=== PATIENT | male | born 1950 | race Caucasian/White ===

== ENCOUNTER 2020-11-17 19:52 | Emergency (ER) | payer MEDICARE, OTHER ==
--- NOTE | 2020-11-17 20:58 | EDM.PDOC ---
ED HPI GENERAL MEDICAL PROBLEM - General Chief Complaint: Genitourinary Problem Stated Complaint: NEEDS TO BE CATHED Time Seen by Provider: 11/17/20 20:05 Source of Information: Reports: Patient, Family (), RN Notes Reviewed History Limitations: Reports: No Limitations - History of Present Illness INITIAL COMMENTS - FREE TEXT/NARRATIVE: Patient is a 70-year-old male who presents to the ER for his acute urinary retention. Patient has been dealing with this for some time, and he has been evaluated urology in [place]. Patient did have his Landaverde catheter pulled earlier this morning, and states that he has not had any sort of relief or release of urine since about 9 AM this morning. So he was going on about 10 or 11 hours of not urinating. Patient presents to the ER to have a Landaverde catheter placed. States that he does have a follow-up urology appointment tomorrow. No fevers no chills no cough no shortness of breath, no nausea/vomiting/diarrhea. - Related Data Allergies Allergy/AdvReac Type Severity Reaction Status Date / Time No Known Allergies Allergy Verified 11/17/20 20:09 Home Meds: Home Meds Tamsulosin [Tamsulosin 24 Hr] 0.4 mg PO DAILY 11/17/20 [History] Past Medical History Genitourinary History: Reports: Retention, Urinary Neurological History: Reports: Brain Injury, CVA - Past Surgical History Neurological Surgical History: Reports: Other (See Below) Other Neurological Surgeries/Procedures: Subdural Hematoma with Delvis Holes after horseback riding injury in . Social & Family History - Tobacco Use Tobacco Use Status *Q: Never Tobacco User - Caffeine Use Caffeine Use: Reports: None - Recreational Drug Use Recreational Drug Use: No ED ROS GENERAL - Review of Systems Review Of Systems: Comprehensive ROS is negative, except as noted in HPI. ED EXAM, RENAL/ - Physical Exam Exam: See Below Exam Limited By: No Limitations General Appearance: Alert, WD/WN, No Apparent Distress Respiratory/Chest: No Respiratory Distress, Lungs Clear, Normal Breath Sounds, No Accessory Muscle Use, Chest Non-Tender Cardiovascular: Normal Peripheral Pulses, Regular Rate, Rhythm, No Edema GI/Abdominal: Normal Bowel Sounds, Soft, Non-Tender, No Distention, No Mass Neurological: Alert, Oriented, Normal Cognition, No Motor/Sensory Deficits Psychiatric: Normal Affect, Normal Mood Skin Exam: Warm, Dry, Intact, Normal Color, No Rash Course - Vital Signs Last Recorded V/S: Last Vital Signs Temp 98.9 F 11/17/20 20:06 Pulse 85 11/17/20 20:06 Resp 16 11/17/20 20:06 BP 160/79 H 11/17/20 20:06 Pulse Ox 100 11/17/20 20:06 - Orders/Labs/Meds Orders: Active Orders 24 hr Category Date Time Status Bladder Scan [RC] ASDIRECTED Care 11/17/20 20:08 Ordered Insert Landaverde Catheter [Insert Urinary Catheter] [OM.PC] Care 11/17/20 20:51 Ordered Stat Urinary Catheter Assessment [RC] ASDIRECTED Care 11/17/20 20:51 Ordered - Re-Assessments/Exams Free Text/Narrative Re-Assessment/Exam: 11/17/20 20:58 Patient presents to the ER for evaluation of his urinary retention. A Landaverde catheter was placed at the time of triage, and the nursing staff did drain about 600 or 700 mils of urine at this time. We will keep the Landaverde in place until he can be seen by urology tomorrow. Departure - Departure Time of Disposition: 20:59 Disposition: Home, Self-Care 01 Condition: Good Clinical Impression: Acute urinary retention, Encounter for Landaverde catheter replacement - Discharge Information *PRESCRIPTION DRUG MONITORING PROGRAM REVIEWED*: No *COPY OF PRESCRIPTION DRUG MONITORING REPORT IN PATIENT JOHN: No Instructions: Acute Urinary Retention, Male, [id number] Referrals: George Stallworth MD [Primary Care Provider] - Additional Instructions: Your evaluated in the ER today for your acute urinary retention. A Landaverde catheter was placed at today's visit. You were shown how to change the bags from the large bag to a leg bag. Please try to do so in a sterile the fashion as possible to help limit the amount of bacteria present when changing the bags. Recommend that you keep your appointment with urology tomorrow, for ongoing management of your urinary retention issues. Do not hesitate to return to the ER at any time if symptoms change or worsen. Sepsis Event Note (ED) - Evaluation Sepsis Screening Result: No Definite Risk - Focused Exam Vital Signs: Vital Signs Temp Pulse Resp BP Pulse Ox 11/17/20 20:06 98.9 F 85 16 160/79 H 100 - My Orders Last 24 Hours: My Active Orders 11/17/20 20:08 Bladder Scan [RC] ASDIRECTED 11/17/20 20:51 Insert Landaverde Catheter [Insert Urinary Catheter] [OM.PC] Stat Urinary Catheter Assessment [RC] ASDIRECTED - Assessment/Plan Last 24 Hours: My Active Orders 11/17/20 20:08 Bladder Scan [RC] ASDIRECTED 11/17/20 20:51 Insert Landaverde Catheter [Insert Urinary Catheter] [OM.PC] Stat Urinary Catheter Assessment [RC] ASDIRECTED
== END 2020-11-17 21:13 | disposition home or self-care (01) ==
LOC: JD.ED 19:52
DX: R33.9 Retention of urine, unspecified (principal); Z46.6 Encounter for fitting and adjustment of urinary device
CPT/HCPCS: 51702; 99283-25

== ENCOUNTER 2020-11-24 20:18 | Emergency (ER) | payer MEDICARE, OTHER ==
--- NOTE | 2020-11-24 21:20 | EDM.PDOC ---
ED [facility] GENERAL MEDICAL PROBLEM - General Chief Complaint: Genitourinary Problem Stated Complaint: NEEDS A CATH PUT IN Time Seen by Provider: 11/24/20 20:45 Source of Information: Reports: Patient History Limitations: Reports: No Limitations - History of Present Illness INITIAL COMMENTS - FREE TEXT/NARRATIVE: Patient is a 70-year-old male presenting to the emergency room with a complaint of urinary retention. Patient states approximately 2 to 3 weeks ago, he first really dealing with this issue. He was seen in [place] and had a Landaverde catheter put in. He states he has been following up with urology. In fact, he removed the urinary catheter this morning and saw urology this afternoon. He was able to urinate a little bit and the regular hold off putting her urinary ca theter back in. However, this evening, he started to feel significant pressure and pain in his pelvic area and therefore came into the emergency room. Patient reports little urinary output since this afternoon. He has follow-up tomorrow with urology as well as follow-up in [place] for more urologic work-up. Patient otherwise denies fevers, dysuria, hematuria. A Landaverde catheter was placed shortly after triage which drained approximately 1000 cc from his bladder. Patient felt significant relief with this. Lower Bladder Pain Score (Numeric/FACES): 9 - Related Data Allergies Allergy/AdvReac Type Severity Reaction Status Date / Time No Known Allergies Allergy Verified 11/17/20 20:09 Home Meds: Home Meds Tamsulosin [Tamsulosin 24 Hr] 0.4 mg PO DAILY 11/17/20 [History] Past Medical History Genitourinary History: Reports: Retention, Urinary Neurological History: Reports: Brain Injury, CVA - Past Surgical History Neurological Surgical History: Reports: Other (See Below) Other Neurological Surgeries/Procedures: Subdural Hematoma with Delvis Holes after horseback riding injury in . Social & Family History - Caffeine Use Caffeine Use: Reports: None ED ROS GENERAL - Review of Systems Review Of Systems: Comprehensive ROS is negative, except as noted in HPI. ED EXAM, RENAL/ - Physical Exam Exam: See Below Text/Narrative:: In addition to that documented in the HPI above, the additional ROS was obtained: Constitutional: Denies fevers or chills Eyes: Denies vision changes ENMT: Denies sore throat CV: Denies chest pain Resp: Denies SOB GI: Denies vomiting or diarrhea : Denies painful urination MSK: Denies recent trauma Skin: Denies new rashes Neuro: Denies new numbness or tingling or weakness Endocrine: Denies unexpected weight loss Heme: Denies bleeding disorders Course - Vital Signs Last Recorded V/S: Last Vital Signs Temp 36.6 C 11/24/20 20:35 Pulse 77 11/24/20 20:35 Resp 16 11/24/20 20:35 BP 142/78 H 11/24/20 20:35 Pulse Ox 99 11/24/20 20:35 - Orders/Labs/Meds Orders: Active Orders 24 hr Category Date Time Status Landaverde Catheter Insertion [Insert Urinary Catheter] [OM. Care 11/24/20 21:30 Ordered PC] Q24H Urinary Catheter Assessment [RC] ASDIRECTED Care 11/24/20 21:23 Active Departure - Departure Time of Disposition: 21:20 Disposition: Home, Self-Care 01 Clinical Impression: Acute urinary retention, Encounter for Landaverde catheter replacement - Discharge Information Instructions: Acute Urinary Retention, Male, [id number] Referrals: George Stallworth MD [Primary Care Provider] - Forms: ED Department Discharge Additional Instructions: Please follow-up with your urologist tomorrow morning. Return to the emergency room for any further issues with urination. Otherwise, please keep catheter in place until seen by urology. Sepsis Event Note (ED) - Evaluation Sepsis Screening Result: No Definite Risk - Focused Exam Vital Signs: Vital Signs Temp Pulse Resp BP Pulse Ox 11/24/20 20:35 36.6 C 77 16 142/78 H 99 - My Orders Last 24 Hours: My Active Orders 11/24/20 21:23 Urinary Catheter Assessment [RC] ASDIRECTED 11/24/20 21:30 Landaverde Catheter Insertion [Insert Urinary Catheter] [OM.PC] Q24H - Assessment/Plan Last 24 Hours: My Active Orders 11/24/20 21:23 Urinary Catheter Assessment [RC] ASDIRECTED 11/24/20 21:30 Landaverde Catheter Insertion [Insert Urinary Catheter] [OM.PC] Q24H Assessment:: Patient 70-year-old male presenting to the emergency room with a complaint of urinary retention. Patient found to have approximate 1000 cc of urine in his bladder. Landaverde catheter was placed without difficulty. Patient will be discharged with outpatient follow-up tomorrow. Patient did have a creatinine checked today according to patient's which was found to be 1.11. No indication for repeating labs at this point. Will recommend close urology follow-up. Return precautions discussed as usual. Patient agrees with plan of care.
== END 2020-11-24 21:50 | disposition home or self-care (01) ==
LOC: JD.ED 20:18
DX: R33.9 Retention of urine, unspecified (principal); Z46.6 Encounter for fitting and adjustment of urinary device; Z79.899 Other long term (current) drug therapy
CPT/HCPCS: 51702; 99283-25

== ENCOUNTER 2020-12-16 13:33 | Emergency (ER) | payer MEDICARE, OTHER ==
[2020-12-16] MEDS ORDERED: Lidocaine 2% Jelly 10 ML Urojet ONE (14:10)
[2020-12-16] MEDS ORDERED: Lidocaine 2% Jelly 10 ML Urojet MUCMEM ONE (14:31)
--- NOTE | 2020-12-16 14:32 | EDM.PDOC ---
ED HPI GENERAL MEDICAL PROBLEM - General Chief Complaint: Genitourinary Problem Stated Complaint: NEEDS CATHETER Time Seen by Provider: 12/16/20 13:38 Source of Information: Reports: Patient, Family, RN Notes Reviewed History Limitations: Reports: No Limitations - History of Present Illness INITIAL COMMENTS - FREE TEXT/NARRATIVE: Patient is a 70-year-old male presenting to the emergency department for Landaverde catheter insertion. He has been dealing with urinary retention for the last month. They have attempted 3 times now to remove the catheter and see if he is able to void unsuccessfully. He had hernia repair last week which he feels may be exacerbating his urinary retention. He was scheduled to see his urologist, Dr. Bella today and they recommended that he take his catheter out early this morning in preparation for the visit which they did. Unfortunately due to the weather, they did not make it to [place] to see the urologist. He reports that initially once the catheter is moved, he had a few episodes of dribbling so he was hopeful that it would be successful, however prior to coming to ER his pain became significant due to not being able to void. He removed his catheter around 1 AM this morning. He has not rescheduled his urology appointment yet. Bladder Pain Score (Numeric/FACES): 6 - Related Data Allergies Allergy/AdvReac Type Severity Reaction Status Date / Time No Known Allergies Allergy Verified 11/17/20 20:09 Home Meds: Home Meds Tamsulosin [Tamsulosin 24 Hr] 0.4 mg PO DAILY 11/17/20 [History] Hydrocodone/Acetaminophen [HYDROcodone-Acetaminophen 5-325 MG] 1 tab PO ASDIRECTED 12/16/20 [History] Sulfamethoxazole/Trimethoprim [Bactrim Ds Tablet] 1 each PO BID 7 Days #14 tablet 12/16/20 [Rx] Past Medical History Genitourinary History: Reports: Prostate Disorder, Retention, Urinary Neurological History: Reports: Brain Injury, CVA - Infectious Disease History Infectious Disease History: Reports: None - Past Surgical History GI Surgical History: Reports: Hernia, Inguinal Other GI Surgeries/Procedures: repaired past week Neurological Surgical History: Reports: Other (See Below) Other Neurological Surgeries/Procedures: Subdural Hematoma with [place] Holes after horseback riding injury in . Social & Family History - Tobacco Use Tobacco Use Status *Q: Never Tobacco User - Caffeine Use Caffeine Use: Reports: None - Recreational Drug Use Recreational Drug Use: No ED ROS GENERAL - Review of Systems Review Of Systems: Comprehensive ROS is negative, except as noted in HPI. ED EXAM, RENAL/ - Physical Exam Exam: See Below Exam Limited By: No Limitations General Appearance: Alert, WD/WN, No Apparent Distress Respiratory/Chest: No Respiratory Distress, Lungs Clear, Normal Breath Sounds, No Accessory Muscle Use, Chest Non-Tender Cardiovascular: Normal Peripheral Pulses, Regular Rate, Rhythm, No Edema, No Gallop, No JVD, No Murmur, No Rub Neurological: Alert, Oriented, CN II-XII Intact, Normal Cognition, Normal Gait, Normal Reflexes, No Motor/Sensory Deficits Psychiatric: Normal Affect, Normal Mood Skin Exam: Warm, Dry, Intact, Normal Color, No Rash Course - Vital Signs Last Recorded V/S: Last Vital Signs Temp 98.6 F 12/16/20 13:39 Pulse 75 12/16/20 13:39 Resp 20 12/16/20 13:39 BP 156/89 H 12/16/20 13:39 Pulse Ox 100 12/16/20 13:39 - Orders/Labs/Meds Orders: Active Orders 24 hr Category Date Time Status Bladder Scan [RC] ASDIRECTED Care 12/16/20 13:50 Active Insert Urinary Catheter [OM.PC] Q24H Care 12/16/20 14:45 Ordered Urinary Catheter Assessment [RC] ASDIRECTED Care 12/16/20 14:32 Active CULTURE URINE [MREF] Stat Lab 12/16/20 14:56 Ordered UA W/MICROSCOPIC [URIN] Stat Lab 12/16/20 14:35 Results Labs: Laboratory Tests 12/16/20 Range/Units 14:35 Urine Color Yellow (Yellow) Urine Appearance Slt cloudy H (Clear) Urine pH 6.0 (5.0-8.0) Ur Specific [place] 1.025 (1.005-1.030) Urine Protein 1+ H (Negative) Urine Glucose (UA) Negative (Negative) Urine Ketones Negative (Negative) Urine Occult Blood 2+ H (Negative) Urine Nitrite Positive H (Negative) Urine Bilirubin Negative (Negative) Urine Urobilinogen 0.2 (0.2-1.0) Ur Leukocyte Esterase 1+ H (Negative) Meds: Medications Discontinued Medications Generic Name Dose Route Start Last Admin Trade Name Freq PRN Reason Stop Dose Admin Lidocaine HCl Confirm 12/16/20 14:10 12/16/20 14:34 Lidocaine 2% Jelly 10 Ml [employer]ro[employer] Administered 12/16/20 14:11 Not Given Dose 10 ml .ROUTE .STK-MED ONE Lidocaine HCl 10 ml 12/16/20 14:31 12/16/20 14:15 Lidocaine 2% Jelly 10 Ml Urojet MUCMEM 12/16/20 14:32 10 ml ONETIME ONE Administration - Re-Assessments/Exams Free Text/Narrative Re-Assessment/Exam: Patient is a 70-year-old male presenting to the emergency department for urinary retention. Landaverde catheter was inserted on arrival and returned approximately 600 mils of clear yellow urine. I sent urine for urinalysis. 12/16/20 14:57 Urinalysis is positive for nitrates and 1+ leukocyte esterase. This has been sent for culture. Patient will be started on Bactrim for treatment of urinary tract infection. Discharge instructions as documented. Departure - Departure Time of Disposition: 14:58 Disposition: Home, Self-Care 01 Condition: Good Clinical Impression: UTI, Urinary tract infectious disease, Acute urinary retention - Discharge Information *PRESCRIPTION DRUG MONITORING PROGRAM REVIEWED*: No *COPY OF PRESCRIPTION DRUG MONITORING REPORT IN PATIENT JOHN: No Prescriptions: Sulfamethoxazole/Trimethoprim [Bactrim Ds Tablet] 1 each PO BID 7 Days #14 tablet Instructions: Urinary Tract Infection, Adult, Indwelling Urinary Catheter Care, Adult Referrals: George Stallworth MD [Primary Care Provider] - Forms: ED Department Discharge Additional Instructions: Take Bactrim as prescribed. Contact Dr. Willis office to set up follow-up. Return to ER as needed. Sepsis Event Note (ED) - Focused Exam Vital Signs: Vital Signs Temp Pulse Resp BP Pulse Ox 12/16/20 13:39 98.6 F 75 20 156/89 H 100 - My Orders Last 24 Hours: My Active Orders 12/16/20 13:50 Bladder Scan [RC] ASDIRECTED 12/16/20 14:32 Urinary Catheter Assessment [RC] ASDIRECTED 12/16/20 14:35 UA W/MICROSCOPIC [URIN] Stat 12/16/20 14:45 Insert Urinary Catheter [OM.PC] Q24H 12/16/20 14:56 CULTURE URINE [MREF] Stat - Assessment/Plan Last 24 Hours: My Active Orders 12/16/20 13:50 Bladder Scan [RC] ASDIRECTED 12/16/20 14:32 Urinary Catheter Assessment [RC] ASDIRECTED 12/16/20 14:35 UA W/MICROSCOPIC [URIN] Stat 12/16/20 14:45 Insert Urinary Catheter [OM.PC] Q24H 12/16/20 14:56 CULTURE URINE [MREF] Stat
== END 2020-12-16 15:07 | disposition home or self-care (01) ==
LOC: JD.ED 13:33
DX: R33.9 Retention of urine, unspecified (principal); N39.0 Urinary tract infection, site not specified
CPT/HCPCS: 51702; 81001; 87086; 87088; 87186; 99284-25

== ENCOUNTER 2020-12-18 15:44 | Emergency (ER) | payer MEDICARE, OTHER ==
--- NOTE | 2020-12-18 16:39 | EDM.PDOC ---
ED HPI GENERAL MEDICAL PROBLEM - General Chief Complaint: Genitourinary Problem Stated Complaint: CATHETER COMPLAINT Time Seen by Provider: 12/18/20 16:20 Source of Information: Reports: Patient, Old Records, RN Notes Reviewed History Limitations: Reports: No Limitations - History of Present Illness INITIAL COMMENTS - FREE TEXT/NARRATIVE: Patient is a 70-year-old male who presents to the ER due to needing a urinary catheter. The patient states he has been having ongoing issues with his urination, he was seen in this ER 2 days ago was found to have a UTI, placed on Bactrim and sent home with a Landaverde catheter. He states that this worked well for about 24 hours but then it fell out. He was trying to avoid coming back to the ER and states that he had to urinate every 20 or 30 minutes, and just little bits at a time. States he was not getting much sleep due to the increased urination. He is working with his urologist for ongoing management. No fevers, no chills, no cough, no shortness of breath. Abdominal Pain Score (Numeric/FACES): 2 - Related Data Allergies Allergy/AdvReac Type Severity Reaction Status Date / Time No Known Allergies Allergy Verified 12/18/20 16:21 Home Meds: Home Meds Tamsulosin [Tamsulosin 24 Hr] 0.4 mg PO DAILY 11/17/20 [History] Hydrocodone/Acetaminophen [HYDROcodone-Acetaminophen 5-325 MG] 1 tab PO ASDIRECTED 12/16/20 [History] Sulfamethoxazole/Trimethoprim [Bactrim Ds Tablet] 1 each PO BID 7 Days #14 tablet 12/16/20 [Rx] Past Medical History HEENT History: Reports: Other (See Below) Other HEENT History: glasses Gastrointestinal History: Reports: Other (See Below) Other Gastrointestinal History: hernia Genitourinary History: Reports: Prostate Disorder, Retention, Urinary Neurological History: Reports: Brain Injury, CVA - Infectious Disease History Infectious Disease History: Reports: None - Past Surgical History GI Surgical History: Reports: Hernia, Inguinal Other GI Surgeries/Procedures: repaired past week Neurological Surgical History: Reports: Other (See Below) Other Neurological Surgeries/Procedures: Subdural Hematoma with Delvis Holes after horseback riding injury in . Social & Family History - Caffeine Use Caffeine Use: Reports: None - Recreational Drug Use Recreational Drug Use: No ED ROS GENERAL - Review of Systems Review Of Systems: Comprehensive ROS is negative, except as noted in HPI. ED EXAM, RENAL/ - Physical Exam Exam: See Below Exam Limited By: No Limitations General Appearance: Alert, WD/WN, No Apparent Distress Respiratory/Chest: No Respiratory Distress, Lungs Clear, Normal Breath Sounds, No Accessory Muscle Use, Chest Non-Tender Cardiovascular: Normal Peripheral Pulses, Regular Rate, Rhythm, No Edema GI/Abdominal: Normal Bowel Sounds, Soft, Non-Tender, No Distention, No Mass Extremities: Normal Inspection, Normal Capillary Refill Neurological: Alert, Oriented, Normal Cognition, No Motor/Sensory Deficits Psychiatric: Normal Affect, Normal Mood Skin Exam: Warm, Dry, Intact, Normal Color, No Rash Course - Vital Signs Last Recorded V/S: Last Vital Signs Temp 97.6 F 12/18/20 16:18 Pulse 74 12/18/20 16:18 Resp 20 12/18/20 16:18 BP 139/91 H 12/18/20 16:18 Pulse Ox 97 12/18/20 16:18 - Orders/Labs/Meds Orders: Active Orders 24 hr Category Date Time Status Bladder Scan [RC] ASDIRECTED Care 12/18/20 16:27 Active Landaverde Catheter Insertion [Insert Urinary Catheter] [OM. Care 12/18/20 16:45 Ordered PC] Q24H Urinary Catheter Assessment [RC] ASDIRECTED Care 12/18/20 16:33 Active - Re-Assessments/Exams Free Text/Narrative Re-Assessment/Exam: 12/18/20 16:38 Patient presents to the ER for needing a Landaverde catheter placed. We will do a pre and post void residual and get a Landaverde catheter placed. Patient is currently on Bactrim and culture results have not been finalized as I did call lab and they had not received any. We will have the patient continue this we will call him if you should need to switch his antibiotics. Departure - Departure Time of Disposition: 16:51 Disposition: Home, Self-Care 01 Condition: Good Clinical Impression: Encounter for Landaverde catheter replacement - Discharge Information *PRESCRIPTION DRUG MONITORING PROGRAM REVIEWED*: No *COPY OF PRESCRIPTION DRUG MONITORING REPORT IN PATIENT JOHN: No Instructions: Indwelling Urinary Catheter Care, Adult Referrals: George Stallworth MD [Primary Care Provider] - Forms: ED Department Discharge Additional Instructions: You were evaluated in the ER today due to needing a Landaverde catheter placed. This was placed without difficulty. Your urine culture results were checked on at the lab, however they do not have a finalized report, so you will need to continue the antibiotics on which you are already prescribed, Bactrim until the report has been finalized to see if you need a change in antibiotics. Follow-up with urologist on Sunday, for ongoing management. Do not hesitate to return to the ER at any time if symptoms change or worsen. Sepsis Event Note (ED) - Focused Exam Vital Signs: Vital Signs Temp Pulse Resp BP Pulse Ox 12/18/20 16:18 97.6 F 74 20 139/91 H 97 - My Orders Last 24 Hours: My Active Orders 12/18/20 16:27 Bladder Scan [RC] ASDIRECTED 12/18/20 16:33 Urinary Catheter Assessment [RC] ASDIRECTED 12/18/20 16:45 Landaverde Catheter Insertion [Insert Urinary Catheter] [OM.PC] Q24H - Assessment/Plan Last 24 Hours: My Active Orders 12/18/20 16:27 Bladder Scan [RC] ASDIRECTED 12/18/20 16:33 Urinary Catheter Assessment [RC] ASDIRECTED 12/18/20 16:45 Landaverde Catheter Insertion [Insert Urinary Catheter] [OM.PC] Q24H
== END 2020-12-18 17:50 | disposition home or self-care (01) ==
LOC: JD.ED 15:44
DX: T83.091A Other mechanical complication of indwelling urethral catheter, initial encounter (principal); Z86.73 Personal history of transient ischemic attack (TIA), and cerebral infarction without residual deficits; Z79.899 Other long term (current) drug therapy
CPT/HCPCS: 51702; 99283-25

== ENCOUNTER 2020-12-26 21:20 | Emergency (ER) | payer MEDICARE, OTHER ==
--- NOTE | 2020-12-26 23:17 | EDM.PDOC ---
ED HPI GENERAL MEDICAL PROBLEM - General Chief Complaint: Genitourinary Problem Stated Complaint: CATHETER COMPLAINT Time Seen by Provider: 12/26/20 22:50 Source of Information: Reports: Patient, Family History Limitations: Reports: No Limitations - History of Present Illness INITIAL COMMENTS - FREE TEXT/NARRATIVE: Patient is a 70-year-old male with a past medical history of BPH presenting with a chief complaint of inability to urinate through a Landaverde catheter. Patient has had a Landaverde for at least 6 weeks now. Patient has scheduled surgery for his prostate in early January. He states this evening he noticed he was unable to pass urine through his catheter. Otherwise, he is having some suprapubic discomfort denies any fevers, chills, abdominal pain, nausea, vomiting. No blood noted in the catheter. Lower Bladder Pain Score (Numeric/FACES): 6 - Related Data Allergies Allergy/AdvReac Type Severity Reaction Status Date / Time No Known Allergies Allergy Verified 12/26/20 22:31 Home Meds: Home Meds Ciprofloxacin [Ciprofloxacin HCl] 500 mg PO BID #14 tab 12/27/20 [Rx] Past Medical History HEENT History: Reports: Other (See Below) Other HEENT History: glasses Gastrointestinal History: Reports: Other (See Below) Other Gastrointestinal History: hernia Genitourinary History: Reports: Prostate Disorder, Retention, Urinary Neurological History: Reports: Brain Injury, CVA - Infectious Disease History Infectious Disease History: Reports: None - Past Surgical History GI Surgical History: Reports: Hernia, Inguinal Other GI Surgeries/Procedures: repaired past week Neurological Surgical History: Reports: Other (See Below) Other Neurological Surgeries/Procedures: Subdural Hematoma with Sterling Holes after horseback riding injury in . Social & Family History - Tobacco Use Tobacco Use Status *Q: Never Tobacco User Second Hand Smoke Exposure: No - Caffeine Use Caffeine Use: Reports: None - Recreational Drug Use Recreational Drug Use: No ED ROS GENERAL - Review of Systems Review Of Systems: Comprehensive ROS is negative, except as noted in HPI. ED EXAM, RENAL/ - Physical Exam Exam: See Below Text/Narrative:: I have reviewed the triage vital signs Const: Well nourished, well developed, appears stated age Eyes: No conjunctival injection HENT: No signs of trauma or swelling, Neck supple without meningismus CV: Regular Rate Rhythm, Warm, well-perfused extremities RESP: Unlabored respiratory effort MSK: No gross deformities appreciated Skin: Warm, dry. No rashes Neuro: Alert, military police officer II-XII grossly intact. Sensation and motor function of extremities grossly intact. Psych: Appropriate mood and affect. Course - Vital Signs Last Recorded V/S: Last Vital Signs Temp 36.7 C 12/26/20 22:25 Pulse 68 12/26/20 22:25 Resp 16 12/26/20 22:25 BP 125/79 12/26/20 22:25 Pulse Ox 97 12/26/20 22:25 - Orders/Labs/Meds Orders: Active Orders 24 hr Category Date Time Status CULTURE URINE [MREF] Stat Lab 12/27/20 00:10 Received Labs: Laboratory Tests 12/27/20 Range/Units 00:10 Urine Color Yellow (Yellow) Urine Appearance Clear (Clear) Urine pH 6.0 (5.0-8.0) Ur Specific Temple > or = 1.030 (1.005-1.030) Urine Protein Negative (Negative) Urine Glucose (UA) Negative (Negative) Urine Ketones Negative (Negative) Urine Occult Blood Trace-intact H (Negative) Urine Nitrite Negative (Negative) Urine Bilirubin Negative (Negative) Urine Urobilinogen 0.2 (0.2-1.0) Ur Leukocyte Esterase Trace H (Negative) U Hyaline Cast (Auto) 0-5 (0-5) /lpf Urine RBC 0-5 (0-5) /hpf Urine WBC 5-10 H (0-5) /hpf Ur Epithelial Cells Not seen (0-5) /hpf Uric Acid Crystals Few H (NONE) Amorphous Sediment Few H (NOT SEEN) /hpf Urine Bacteria Moderate H (FEW) /hpf Urine Mucus Rare (FEW) /hpf Departure - Departure Time of Disposition: 00:51 Disposition: Home, Self-Care 01 Clinical Impression: Retention of urine, UTI (urinary tract infection) - Discharge Information Prescriptions: Ciprofloxacin [Ciprofloxacin HCl] 500 mg PO BID #14 tab Instructions: Urinary Tract Infection, Adult, [id number], Acute Urinary Retention, Male, [id number] Referrals: George Stallworth MD [Primary Care Provider] - Forms: ED Department Discharge Sepsis Event Note (ED) - Evaluation Sepsis Screening Result: No Definite Risk - Focused Exam Vital Signs: Vital Signs Temp Pulse Resp BP Pulse Ox 12/26/20 22:25 36.7 C 68 16 125/79 97 - My Orders Last 24 Hours: My Active Orders 12/27/20 00:10 CULTURE URINE [MREF] Stat - Assessment/Plan Last 24 Hours: My Active Orders 12/27/20 00:10 CULTURE URINE [MREF] Stat Assessment:: Patient 70 old male presenting to the emergency room with acute urinary retention. Nursing staff was able to flush catheter and get appropriate urine output. Urinalysis demonstrates evidence of urinary tract infection. Patient will be initiated on ciprofloxacin oral antibiotics. Otherwise, no indication for laboratory testing at this time. Patient does have appropriate outpatient follow-up with urology. Return precautions discussed as usual. Patient agrees with plan of care.
== END 2020-12-27 01:10 | disposition home or self-care (01) ==
LOC: JD.ED 21:20
DX: N39.0 Urinary tract infection, site not specified (principal)
CPT/HCPCS: 81001; 87086; 99283

== ENCOUNTER 2021-05-16 17:17 | Emergency (ER) | payer MEDICARE, OTHER ==
[2021-05-16] MEDS ORDERED: cefTRIAXone 1 GM, Lidocaine 1% 2.1 ML IM ONE ×2 (19:23)
== END 2021-05-16 19:58 | disposition home or self-care (01) ==
LOC: JD.ED 17:17
DX: N39.0 Urinary tract infection, site not specified (principal); Z86.73 Personal history of transient ischemic attack (TIA), and cerebral infarction without residual deficits
CPT/HCPCS: 36415; 51798; 80053; 81001; 85025; 87086; 96372; 99283; J0696; 99284

== ENCOUNTER 2022-09-30 06:20 | Emergency (ER) | payer MEDICARE, OTHER ==
[2022-09-30 06:43] LABS: APPEARANCE,URINE CLOUDY (Clear); BILIRUBIN,URINE NEGATIVE (Negative); COLOR,URINE YELLOW (Yellow); GLUCOSE,URINE NEGATIVE (Negative); KETONES,URINE 1+ (Negative); LEUKOCYTE ESTERASE,URINE 1+ (Negative); NITRITE,URINE NEGATIVE (Negative); OCCULT BLOOD,URINE 2+ (Negative); PH,URINE 5.5 (5.0-8.0); PROTEIN,URINE 2+ (Negative); UROBILINOGEN,URINE 0.2 (0.2-1.0)
[2022-09-30 07:02] LABS: WBC CLUMPS,URINE MODERATE /hpf (NOT SEEN); WBC,URINE 50-75 /hpf (0-5)
[2022-09-30 07:03] LABS: BACTERIA,URINE MODERATE /hpf (FEW); EPITHELIAL CELLS,URINE NOT SEEN /hpf (0-5); HYALINE CASTS,URINE 0-5 /lpf (0-5); MUCUS,URINE MODERATE /hpf (FEW)
[2022-09-30] MEDS ORDERED: Ondansetron 4 MG Tab.DIS PO PRN (07:27)
== END 2022-09-30 08:03 | disposition home or self-care (01) ==
LOC: JD.ED 06:20
DX: N39.0 Urinary tract infection, site not specified (principal); Z86.73 Personal history of transient ischemic attack (TIA), and cerebral infarction without residual deficits; Z79.899 Other long term (current) drug therapy
CPT/HCPCS: 51798; 81001; 87086; 87088; 87186; 99284; A9270; 99282

== ENCOUNTER 2022-12-28 04:23 | Emergency (ER) | payer MEDICARE, OTHER ==
[2022-12-28 04:52] LABS: APPEARANCE,URINE CLEAR (Clear); BILIRUBIN,URINE NEGATIVE (Negative); COLOR,URINE YELLOW (Yellow); GLUCOSE,URINE NEGATIVE (Negative); KETONES,URINE NEGATIVE (Negative); LEUKOCYTE ESTERASE,URINE NEGATIVE (Negative); NITRITE,URINE NEGATIVE (Negative); OCCULT BLOOD,URINE NEGATIVE (Negative); PROTEIN,URINE NEGATIVE (Negative); UROBILINOGEN,URINE 0.2 (0.2-1.0)
[2022-12-28] MEDS ORDERED: Sodium Chloride 0.9% 10 ML Syringe FLUSH PRN (05:44)
[2022-12-28 06:05] LABS: BASOPHILS ABSOLUTE AUTO 0.1 K/mm3 (0.0-0.2); BASOPHILS PERCENT AUTO 0.4 % (0.0-1.0); EOSINOPHILS ABSOLUTE AUTO 0.1 K/mm3 (0.0-0.4); EOSINOPHILS PERCENT AUTO 1.1 % (0.0-6.0); HEMATOCRIT 43.7 % (42.0-52.0); HEMOGLOBIN 14.9 gm/dl (14.0-18.0); IMMATURE GRAN ABSOLUTE AUTO 0.07 K/mm3 (0.00-0.05); IMMATURE GRAN PERCENT AUTO 0.6 % (0.0-0.4); LYMPHOCYTES ABSOLUTE AUTO 1.1 K/mm3 (1.0-4.8); MEAN CORPUSCULAR HGB CONC 34.1 g/dl (32.0-36.0); MEAN CORPUSCULAR VOLUME 90.9 fl (83.0-99.0); MEAN PLATELET VOLUME 8.7 fl (9.4-12.4); MONOCYTES PERCENT AUTO 7.9 % (0.0-8.0); NEUTROPHILS ABSOLUTE AUTO 9.8 K/mm3 (1.8-7.7); PLATELET COUNT,PLT 207 K/mm3 (150-400); RED BLOOD CELL COUNT 4.81 M/mm3 (4.52-5.90); WHITE BLOOD CELL COUNT,WBC 12.04 K/mm3 (3.9-11.3)
[2022-12-28 06:28] LABS: ALBUMIN 3.5 g/dl (3.4-5.0); ANION GAP 14.8 (5-15); BILIRUBIN TOTAL 0.6 mg/dL (0.2-1.0); BUN/CREATININE RATIO 32.2 (14-18); CALCIUM 8.9 mg/dL (8.5-10.1); CREATININE 0.9 mg/dL (0.7-1.3); EST CRCL DRUG DOSING (CG) 77.76 mL/min; POTASSIUM,K 3.8 mEq/L (3.5-5.1); PROTEIN TOTAL,TP 7.1 g/dl (6.4-8.2)
== END 2022-12-28 09:00 | disposition home or self-care (01) ==
LOC: JD.ED 04:23
DX: N41.0 Acute prostatitis (principal)
CPT/HCPCS: 36415; 80053; 81003; 83690; 84484; 85025; 86060; 86140; 99284